=== PATIENT | male | born 1955 | race Caucasian/White ===

== ENCOUNTER → 2023-12-30 12:35 | Outpatient (REF) | payer OTHER, SELFPAY | LOC: HWRAD 12:35 | PROVIDERS: ATTENDING PHYSICIAN Family Medicine | DX: R51.9 Headache, unspecified (principal) | CPT/HCPCS: 70450 ==

== ENCOUNTER → 2024-01-02 10:56 | Outpatient (REF) | payer OTHER, SELFPAY | LOC: HWRAD 10:56 | PROVIDERS: ATTENDING PHYSICIAN Family Medicine | DX: T15.90XA Foreign body on external eye, part unspecified, unspecified eye, initial encounter (principal) | CPT/HCPCS: 70030 ==

== ENCOUNTER → 2024-01-19 18:59 | Outpatient (REF) | payer OTHER, SELFPAY | LOC: MRI 18:59 | PROVIDERS: ATTENDING PHYSICIAN Family Medicine | DX: Q04.6 Congenital cerebral cysts (principal); G93.0 Cerebral cysts | CPT/HCPCS: 70553; A9575 ==

== ENCOUNTER → 2024-02-16 15:07 | Outpatient (REF) | payer OTHER, SELFPAY | LOC: HWRAD 15:07 | PROVIDERS: ATTENDING PHYSICIAN Surgery; FAMILY PHYSICIAN Family Medicine | DX: N50.811 Right testicular pain (principal); N50.82 Scrotal pain | CPT/HCPCS: 72192 ==

== ENCOUNTER 2024-03-03 12:13 | Emergency (ER) | payer OTHER, SELFPAY ==
[2024-03-03 12:20] VITALS: BP 146/88
--- NOTE | 2024-03-03 13:42 | ED.GENMED ---
History of Present Illness
General
Chief Complaint: Bowel Problem
Time Seen by Provider: 03/03/24 13:42
Travel History
Have you had any contact with someone who has COVID-19?: No
Do you have any symptoms of coronavirus? Fever > 100 degrees, chills, cough, shortness of breath, sore throat, loss of taste or smell, muscle aches, or headache?: No
History of Present Illness
History of Present Illness:
HPI: Patient presents due to concerns with constipation in the setting of right inguinal hernia. He fell like he was going to vomit a few days ago but did not. He has a history of left-sided inguinal hernia repair. He is scheduled for right
inguinal hernia repair in about [address] of the [facility] surgeons.
EXAM:
GENERAL: Well appearing in no distress
HEENT: Moist oral mucosa
CARDIOVASCULAR: No murmurs, normal heart rate, regular rhythm, No chest wall tenderness
PULMONARY: No respiratory distress, breath sounds are clear and equal
ABDOMEN: Soft with no peritoneal signs, there is mild tenderness associated with the right inguinal hernia however it was fairly soft and I was able to reduce in the ED
NEUROLOGIC: Excellent strength all extremities, no coordination deficits
PSYCHIATRIC: Appropriate mental status, normal insight and judgement
EXTREMITIES: Nontender, no edema, moves all extremities equally
SKIN: No rash, no lesions
TIME OF INITIAL ENCOUNTER: 2:00 PM
NUMBER AND COMPLEXITY OF PROBLEMS ADDRESSED AT THE ENCOUNTER
� Chronic conditions affecting care: Known inguinal hernias
� Acute Exacerbation and/or Progression of Chronic Illness: This is an acute problem and had a similar episode in the past and the left
� Differential Diagnosis includes: Inguinal hernia, incarcerated hernia, small bowel obstruction very unlikely now that the hernia has been reduced
AMOUNT AND/OR COMPLEXITY OF DATA TO BE REVIEWED AND ANALYZED
� I performed an independent evaluation of and my interpretation is:
EKG:
CT:
X-rays:
Laboratory Studies:
Other:
� Review of other/old records: I reviewed records, the patient had an unremarkable CBC in 2014
� Clinical information was obtained by an independent historian: I spoke to at bedside
� Prescriptions/Medications Considered but not given:
� Further testing considered but not performed: Considered imaging however the hernia was fairly easily reduced and he has not had any vomiting.
RISK OF COMPLICATIONS AND/OR MORBIDITY OR MORTALITY OF PATIENT MANAGEMENT
� Social determinants of health affecting care: Lives at home
� Discussion with other providers: I discussed case with Dr. Marinelli.
� Escalation of care including admission/observation vs risk of discharge considered: I laid the patient flat and was able to successfully reduce the hernia. I had the patient lay flat. He feels somewhat improved. I contacted
general surgery. On reassessment at 2:50 PM, the patient appears fairly comfortable. He is to call Dr. Marinelli for follow-up. I also suggest that he try MiraLAX to help treat constipation/loose in the stool.
Phy Exam
Physical Exam
Physical Exam:
See HPI
Course
Vital Signs
Initial and Last Documented VS:
Initial Vital Signs
Temp Pulse Resp BP Pulse Ox
98.4 F 56 18 146/88 97
03/03/24 12:20 03/03/24 12:20 03/03/24 12:20 03/03/24 12:20 03/03/24 12:20
Last Documented Vital Signs
Temp Pulse Resp BP Pulse Ox
98.4 F 56 18 146/88 97
03/03/24 12:20 03/03/24 12:20 03/03/24 12:20 03/03/24 12:20 03/03/24 12:20
*Critical Care Note
Total Time (30-74mins, 75-104mins- exclusive of procedures): Not Applicable
ED Attending Note
-
Portions of this chart may have been created with voice recognition software.� Occasional wrong word or��sound alike� substitutions may have occurred due to the inherent limitations of voice recognition software.
Discharge Plan
Departure
Patient Disposition: Home (Routine Discharge)
Date of Disposition: 03/03/24
Time of Disposition: 14:51
Patient with high blood pressure during this ER visit?: Yes
Discharge Problem:
Inguinal hernia
Instructions: Groin Hernia (DC), BLOOD PRESSURE
Referrals:
Abel Reese DO [Family Provider] -
Micah Marinelli MD [Active] - Follow up in 1 week
Activity Restrictions/Additional Instructions:
You have a right-sided inguinal hernia. I was able to reduce this. Consider adding MiraLAX to what you are already taking to help prevent constipation. I notified Dr. Marinelli, Dr. Marinelli recommends that you call the office to see if they can may
be schedule you for an earlier date. Return here if worse.
Interventions
Interventions:
*Risk Screen - Suicide Last Done: 03/03/24 12:20
*General Assessment Last Done: 03/03/24 12:20
*ED COVID-19 Vaccine History Last Done: 03/03/24 12:20
Discharge Date and Time
Print Language: KOREAN
== END 2024-03-03 15:26 | disposition home or self-care (01) ==
LOC: EMR 12:13
PROVIDERS: EMERGENCY PHYSICIAN Emergency Medicine; FAMILY PHYSICIAN Family Medicine
DX: K40.90 Unilateral inguinal hernia, without obstruction or gangrene, not specified as recurrent (principal)
CPT/HCPCS: 99282

== ENCOUNTER 2024-03-18 06:38 | Day surgery (SDC) | payer OTHER, SELFPAY ==
[2024-03-09 12:51] VITALS: BMI 30.6
[2024-03-18] VITALS (11 sets, daily range): BP systolic 134–151; BP diastolic 74–81; BMI 30.6
[2024-03-18] MEDS: NORMOSOL-R 1000 IV (06:45)
[2024-03-18] MEDS: TYLENOL 1000 MG PO (06:45)
--- NOTE | 2024-03-18 07:30 | W.SUR.PREOP ---
Pre-Operative Surgical Note
-
I have examined this patient prior to the performance of the scheduled procedure.
The patient's condition is unchanged from the time of the current History and
Physical and the patient is able to undergo the scheduled procedure.
--- NOTE | 2024-03-18 09:09 | W.IMMPOSTOP ---
Surgical Immed Post Op Note
-
Primary Surgeon: Bakari Cardoza MD
Assisting Surgeon: None
Pre-op Diagnosis: Right scrotal inguinal hernia
Post-op Diagnosis: Same
Procedure Performed: Robotic right inguinal hernia repair with mesh
Anesthesia Type: General
Specimen / Cultures: Cord lipoma
Estimated Blood Loss: 3 cc
Complications: None
Operative Findings: Previous laparoscopic left inguinal hernia repair noted. Some folding of the mesh and noted at the posterior lateral aspect but no lead point or concern for recurrence. The patient had a right indirect inguinal hernia. No
direct or femoral components. Patient had a small cord lipoma that was reduced and resected. The floor was reinforced with a large right Bard 3D max mid weight polypropylene uncoated mesh.
POST OP PLAN:
Will discharge home after voiding
--- NOTE | 2024-03-18 09:14 | OR.RPT ---
Operative Report
Operative Report
Patient Name: Jerson Munoz
: 1955
Date of Operation: 03/18/2024
Preoperative Diagnosis: Right scrotal inguinal hernia
Postoperative Diagnosis: Same
Procedure(s):
Robotic Inguinal Hernia Repair with mesh, right (TONIA approach)
Surgeon(s):
Dr. Cardoza
Cuffing Machine Operator(s):
MICHAEL Lozano
Anesthesia: General
Estimated Blood Loss: 3 cc
Urine Output: None
Drains/Lines/Implants: Large 3D Max Bard mid weight mesh
Specimens: None
Indication for surgery: The patient with a history of a prior supraumbilical and left inguinal hernia repairs who presented to our clinic with right groin pain and bulge. He was noted on exam to have a right inguinal Hernia. Following review of
therapeutic options they has elected to undergo a minimally invasive repair.
Operative Findings: Previous supraumbilical mesh as well as his laparoscopic left inguinal hernia repair noted. Some folding of the previous mesh was noted at the posterior lateral aspect but no lead point or concern for recurrence. The patient
had a right indirect inguinal hernia. No direct or femoral components. Patient had a small cord lipoma that was reduced and resected. The floor was reinforced with a large right Bard 3D max mid weight polypropylene uncoated mesh.
Details of the operation:
The patient was brought to the Operating Room and placed in the supine position with the arms tucked. IV antibiotics were infused and Venodyne stockings placed. Following uneventful induction of general endotracheal anesthesia, an orogastric tube
were placed. The abdomen was prepped and draped in the usual sterile fashion. The abdomen was entered using a Veress technique which required 1 pass, pneumoperitoneum to 15 mmHg was obtained without difficulty. An 8mm trochar was passed through
the abdominal wall roughly 20 cm cephalad to the inguinal canal well away from the midline/likely prior mesh. We then confirmed that no inadvertent injury was made while passing the trocar or Veress needle. We then placed two additional 8 mm ports
in the left upper and right upper quadrants. We then docked the robot with a Prograsper in the left hand port and monopolar scissors in the right. His prior supraumbilical midline mesh was noted in the preperitoneal space. We also noted his
previous laparoscopic left inguinal hernia repair. There was some folding of the mesh at the posterior lateral corner but there was no lead point or concern for recurrence. There was some permanent green suture likely Ethibond noted for the flap
closure. On the patient's right side he had an obvious large right indirect inguinal hernia which contained no bowel. We then began by creating a flap at the level of the ASIS laterally working our way medially to the medial umbilical fold.
Staying onto the peritoneum we were able to circumferentially dissect around the hernia sac and and peel it off of the underlying spermatic cord and testicular vessels, taking care to preserve them. Medially we identified the midline pubis as well
as Piyush's ligament and ensured to dissect 2 cm below the pubic rim over the bladder. There were some crossing vessels in this area which were cauterized to allow for good exposure of the ligament. After exposure of the entire myopectineal
orifice we identified and reduced: A large indirect inguinal hernia, no direct inguinal hernia, no femoral hernia, and a small cord lipoma, which was removed
We then fixated a large 3D max mesh with a 2-0 Vicryl stitch at coopers medially and superior laterally. The flap was then closed with a running 2-0 barbed monocryl suture ensuring that the tail was cut flush with the medial fat pad so that no
barbs were exposed. During the closure of the flap an Angiocath was inserted and 20 cc of quarter percent Marcaine was instilled. The area in the flap cavity was then evacuated of air confirming that the mesh was flush and there were no folds. A
small rent in the peritoneum was noted and closed with a 2-0 Vicryl incorporating part of the redundant sac. All needles and instruments as well as the cord lipoma were then removed and the robot was undocked. The abdomen was then desufflated, and
pneumoperitoneum evacuated. All skin sites were then closed with 4-0 Monocryl followed by Dermabond. Counts were correct and overall, the patient tolerated the procedure well and was taken to the Recovery Room postoperatively in stable condition.
I was the attending physician and performed the procedure with assistance of the METEOROLOGY INSTRUCTOR above. I was present for all portions of the case
Bakari Cardoza MD
[2024-03-18] MEDS: FLOMAX 0.400000000000000022 MG PO (12:00)
== END 2024-03-18 12:20 | disposition home or self-care (01) ==
LOC: SDS 06:38
PROVIDERS: ATTENDING PHYSICIAN Surgery; FAMILY PHYSICIAN Family Medicine
DX: K40.90 Unilateral inguinal hernia, without obstruction or gangrene, not specified as recurrent (principal); Z88.0 Allergy status to penicillin; Z88.2 Allergy status to sulfonamides
CPT/HCPCS: 49650; S2900; 88304; 36415; 93005; C1781

== ENCOUNTER → 2025-10-26 10:38 | Outpatient (REF) | payer MEDICARE, SELFPAY | LOC: RAD 10:38 | PROVIDERS: ATTENDING PHYSICIAN Family Medicine | DX: M54.6 Pain in thoracic spine (principal); S33.5XXA Sprain of ligaments of lumbar spine, initial encounter | CPT/HCPCS: 72072; 72110 ==